=== PATIENT | female | born 1945 | race Caucasian/White ===

== ENCOUNTER → 2024-01-27 14:34 | Outpatient (REF) | payer OTHER, SELFPAY | LOC: RAD 14:34 | PROVIDERS: ATTENDING PHYSICIAN Nurse Practitioner Family; FAMILY PHYSICIAN Family Medicine; OTHER PHYSICIAN Nurse Practitioner Family | DX: R63.4 Abnormal weight loss (principal); M25.512 Pain in left shoulder; M25.532 Pain in left wrist; M25.522 Pain in left elbow; M25.551 Pain in right hip; M25.511 Pain in right shoulder | CPT/HCPCS: 71260; 73030; 73080; 73110; 73502; 74177; Q9967 ==

== ENCOUNTER 2024-03-30 06:49 | Emergency (ER) | payer OTHER, SELFPAY ==
[2024-03-30 06:54] VITALS: BP 134/78
--- NOTE | 2024-03-30 07:21 | ED.GENMED ---
History of Present Illness
General
Chief Complaint: Abdominal Pain
Source: patient and family
Exam Limitations: none
Time Seen by Provider: 03/30/24 07:01
Nursing documentation reviewed up to this point in time: agreed with
Travel History
Have you had any contact with someone who has COVID-19?: No
Do you have any symptoms of coronavirus? Fever > 100 degrees, chills, cough, shortness of breath, sore throat, loss of taste or smell, muscle aches, or headache?: No
History of Present Illness
History of Present Illness:
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
intermittent radiation to the back ongoing since yesterday not responding to typical treatments of Carafate and her daily Protonix. Does feel similar to previous episodes of ulcer discomfort but is more prolonged than usual. Had some radiation of
discomfort into her chest earlier this morning which prompted come to the ER. Denies diaphoresis has had some nausea no vomiting denies changes in bowel movements.
Review of Systems
Review of Systems
Allergies reviewed?: Yes
All Other Systems: ROS reviewed and negative except as documented in HPI and ROS
Phy Exam
Physical Exam
Physical Exam:
GENERAL: Alert , in no apparent distress
EYE: pupils equal and reactive
NECK: Supple, no significant adenopathy.
ENT: o/p clr, mmm.
CARDIAC: Regular rate and rhythm .
LUNGS: Clear breath sounds bilaterally, no acute respiratory distress, no wheezes/rales/rhonchi
ABDOMEN: Soft, without focal tenderness, no r/g, no cvat
NEUROLOGICAL: Alert and oriented, no focal neuro deficits
SKIN: Warm and dry, skin intact.
MUSCULOSKELETAL: No edema, well perfused.
PSYCH: Normal and appropriate interaction.
Course
Orders/Labs/Results
Orders:
Orders
03/30/24 07:00
Electrocardiogram (*1) Urgent
Reason for Study: Abdominal Pain
EKG- Treatment ONCE
03/30/24 07:20
Famotidine [Pepcid] 20 mg IV NOW STA
Mag Hydrox/Al Hydrox/Simeth [Maalox] 30 ml Phenobarb/Hyoscy/Atropine/Scop [] 10 ml PO NOW
Chest [CR Chest - 2 Views ] Urgent
Comment:
Reason For Exam: upper abd pain
03/30/24 07:25
Complete Blood Count/With Diff Urgent
Comprehensive Metabolic Panel Urgent
Lipase Urgent
Troponin I Urgent
03/30/24 07:26
Mag Hydrox/Al Hydrox/Simeth [Maalox] 30 ml .ROUTE .STK-MED ONE
Phenobarb/Hyoscy/Atropine/Scop [] 10 ml .ROUTE .STK-MED ONE
Abnormal Lab Results
03/30/24
07:25
Absolute Monos (auto) 0.8 H 10^3/uL
(0.1-0.6)
Carbon Dioxide 31 H mmol/L
(22-30)
Glucose 123 H mg/dl
(70-99)
03/30/24 07:25
03/30/24 07:25
Vital Signs
Initial and Last Documented VS:
Initial Vital Signs
Temp Pulse Resp BP Pulse Ox
98.5 F 97 18 134/78 99
03/30/24 06:54 03/30/24 06:54 03/30/24 06:54 03/30/24 06:54 03/30/24 06:54
Last Documented Vital Signs
Temp Pulse Resp BP Pulse Ox
98.5 F 78 16 129/91 98
03/30/24 06:54 03/30/24 08:11 03/30/24 08:11 03/30/24 08:11 03/30/24 08:11
MDM/Problems Addressed
MDM/Problems Addressed:
78-year-old female presenting to the emergency department today with concerns of epigastric abdominal pain persisting since yesterday feels similar to previous episodes of ulcer discomfort but is lasting longer than usual. Had some pain rating to
the chest as well which. On arrival vital signs are normal patient in no obvious distress no reproducible pain throughout the abdomen but is describing to the epigastric region. Denies any no chest pain in the last few hours. Initial EKG is
normal no signs of ischemia or arrhythmia. Symptoms improving after receiving famotidine and Maalox here. Remainder of the evaluation without emergent findings no evidence of cardiac issue troponin negative EKG normal chest x-ray normal. Patient
with likely symptoms of reflux plan for outpatient management and close GI follow-up. Return precautions given.
*Critical Care Note
Total Time (30-74mins, 75-104mins- exclusive of procedures): Not Applicable
ED Attending Note
-
Portions of this chart may have been created with voice recognition software.� Occasional wrong word or��sound alike� substitutions may have occurred due to the inherent limitations of voice recognition software.
Discharge Plan
Departure
Patient Disposition: Home (Routine Discharge)
Date of Disposition: 03/30/24
Time of Disposition: 08:51
Patient with high blood pressure during this ER visit?: No
Condition: Good
Covid-19: Not Applicable
Discharge Problem:
Epigastric pain
Instructions: Acid Reflux and GERD in Adults (DC), Summers Diet
Prescriptions:
New
famotidine 20 mg tablet
20 mg PO BID Qty: 10 0RF
No Action
metformin 500 mg Tablet
500 mg PO DAILY
gabapentin 600 mg Tablet
600 mg PO BID
metoprolol succinate 50 mg Tablet Extended Release 24 Hr
50 mg PO DAILY
cyanocobalamin (vitamin B-12) [Vitamin B-12] 1,000 mcg Tablet
1,000 mcg PO DAILY
diltiazem HCl 120 mg Capsule,Extended Release 12 Hr
120 mg PO BID
oxycodone-acetaminophen 5-325 mg Tablet
1 tab PO BID PRN (Reason: pain)
pantoprazole 40 mg Tablet,Delayed Release (Dr/Ec)
40 mg PO DAILY
levothyroxine 125 mcg Tablet
125 mcg PO DAILY
lidocaine 5 % Adhesive Patch,Medicated
1 patch TOPICAL DAILY
diltiazem HCl 90 mg Capsule,Extended Release 12 Hr
90 mg PO BID
gabapentin 300 mg Capsule
300 mg PO DAILY
acetaminophen 500 mg Capsule
1,000 mg PO TID
dicyclomine 10 mg Capsule
10 mg PO TID
cholecalciferol (vitamin D3) 25 mcg (1,000 unit) Capsule
25 mcg PO DAILY
rosuvastatin 10 mg Tablet
10 mg PO DAILY
duloxetine 30 mg Capsule,Delayed Release(Dr/Ec)
90 mg PO DAILY
Cholestyramine Light 4 gram Powder
1 ea PO DAILY
aspirin 81 mg Capsule
81 mg PO DAILY
Probiotic
1 tab PO DAILY
fiber
28.3 % PO DAILY
Referrals:
Ingrid Bullock CRNP [Family Provider] -
Activity Restrictions/Additional Instructions:
You came to the emergency department today with concerns of epigastric pain. Here you had a reassuring assessment no evidence of cardiac issues. Please take famotidine additionally each night. Can also try Maalox or Tums as an alternative to
Carafate to see if this improves her symptoms. Please follow-up closely with your GI doctor. Return to the emergency department for any worsening, new or concerning symptoms.
Interventions
Interventions:
*Risk Screen - Suicide Last Done: 03/30/24 06:58
*General Assessment Last Done: 03/30/24 06:58
*Neglect/Abuse Screening Last Done: 03/30/24 06:58
ED- Fall Risk Assessment Last Done: 03/30/24 07:39
*Nursing Disposition Last Done: 03/30/24 09:00
MF-Llhcmk-Lpiisrnzoy Assessment Last Done: 03/30/24 07:39
Discharge Date and Time
Discharge Date/Time: 03/30/24 09:00
Print Language: AUSTR[place]
[2024-03-30] MEDS: MAALOX 40 PO (07:34)
[2024-03-30] MEDS: PEPCID 20 MG IV (07:34)
[2024-03-30 07:38] LABS: % Basophils 0.3 % (0-2); % Eosinophils 1.6 % (0-6); % Immature Granulocytes 0.2 % (0-0.5); % Lymphocytes 24.8 % (20.5-51.1); % Monocytes 8.6 % (1.7-9.3); % Neutrophils 64.5 % (42.2-75.2); Absolute Eosinophils 0.1 10^3/uL (0-0.7); Absolute Lymphocytes 2.2 10^3/uL (1.2-3.4); Absolute Monocytes 0.8 10^3/uL (0.1-0.6); Absolute Neutrophils 5.6 10^3/uL (1.4-6.5); Hematocrit 40.8 % (37.0-47.0); Hemoglobin 14.2 g/dL (12.0-16.0); Mean Corp Hgb Conc. 34.8 g/dL (33.0-37.0); Mean Corpuscular Hgb 29.2 pg (27.0-31.0); Mean Platelet Volume 8.6 fL (7.4-10.4); Nucleated Red Blood Cells % 0 %; Platelet Count 217 10^3/uL (130-400); Red Blood Cell Count 4.86 10^6/uL (4.20-5.40); Red Cell Dist. Width 13.4 % (11.5-14.5); White Blood Cell Count 8.7 10^3/uL (4.8-10.8)
[2024-03-30 07:51] LABS: ALT (SGPT) 16 U/L (0-35); AST (SGOT) 23 U/L (14-36); Albumin 4.1 g/dl (3.5-5.0); Alkaline Phosphatase 85 U/L (38-126); Blood Urea Nitrogen 17 mg/dl (7-17); Calcium 9.6 mg/dl (8.4-10.2); Carbon Dioxide 31 mmol/L (22-30); Chloride 98 mmol/L (98-107); Glucose 123 mg/dl (70-99); Lipase 71 U/L (23-300); Potassium 3.8 mmol/L (3.5-5.1); Sodium 136 mmol/L (135-145); Total Bilirubin 0.9 mg/dl (0.2-1.3); Total Protein 6.5 g/dl (6.3-8.2); eGFR > 60.00
[2024-03-30 07:57] LABS: Troponin I < 0.012 ng/ml
[2024-03-30 08:11] VITALS: BP 129/91
== END 2024-03-30 09:00 | disposition home or self-care (01) ==
LOC: EMR 06:49
PROVIDERS: Physician Assistant; EMERGENCY PHYSICIAN Emergency Medicine; FAMILY PHYSICIAN Nurse Practitioner Family
DX: R10.13 Epigastric pain (principal); K30 Functional dyspepsia; R07.9 Chest pain, unspecified; R51.9 Headache, unspecified; E11.9 Type 2 diabetes mellitus without complications; I48.91 Unspecified atrial fibrillation; K57.92 Diverticulitis of intestine, part unspecified, without perforation or abscess without bleeding; K21.9 Gastro-esophageal reflux disease without esophagitis; E07.9 Disorder of thyroid, unspecified; C95.91 Leukemia, unspecified, in remission; Z87.11 Personal history of peptic ulcer disease; Z79.82 Long term (current) use of aspirin; Z79.84 Long term (current) use of oral hypoglycemic drugs; Z91.018 Allergy to other foods; Z96.653 Presence of artificial knee joint, bilateral; Z90.49 Acquired absence of other specified parts of digestive tract
CPT/HCPCS: 99284; 96374; 71046; 80053; 83690; 84484; 85025; 93005

== ENCOUNTER → 2024-05-26 06:08 | Day surgery (SDC) | payer OTHER, SELFPAY | LOC: GI 06:08 | PROVIDERS: ATTENDING PHYSICIAN Internal Medicine Gastroenterology | DX: K86.2 Cyst of pancreas (principal); Z53.8 Procedure and treatment not carried out for other reasons | CPT/HCPCS: 43235 ==